=== PATIENT | male | born 1945 | race Caucasian/White ===

== ENCOUNTER → 2023-09-17 | Outpatient (CLI) | payer MEDICARE ==
[2023-09-17 14:08] LABS: African American GFR (CKD) 86 (>60 ml/min/1.73 sqM); Blood Urea Nitrogen 21 mg/dL (9-20); Non-African American GFR(CKD) 74 (>60 ml/min/1.73 sqM)
--- NOTE | 2023-09-17 15:09 | CT ---
EXAMINATION TYPE: CT soft tissue neck w con DATE OF EXAM: 09/17/2023 COMPARISON: None HISTORY: c/o sore throat CT DLP: 297.7 mGycm CONTRAST: CT scan of the neck is performed with IV Contrast, patient injected with 100 mL of Isovue 300. Contrast enhanced CT of the neck was performed from the skull base through the lung apices. AIRWAY: Large soft tissue mass at the base of the tongue on the left measuring 2.9 x 2.4 x 2.9 cm fel t to reflect malignancy until proven otherwise. Tissue diagnosis is recommended. There appears to be extension into the left tonsillar pillar. The remaining airway appears to be free of additional mass and is patent. SALIVARY GLANDS: The submandibular and parotid glands are free of mass or inflammatory process. THYROID GLAND: No nodules or masses seen. LYMPH NODES: No adenopathy seen greater than 1cm. LUNG APICES: No nodule or mass is seen. Subpleural fibrosis noted mild in degree. OTHER: Vascular structures are patent. No significant degenerative change of the cervical spine. N o abscess seen. IMPRESSION: Large soft tissue mass at the base of the tongue on the left measuring 2.9 x 2.4 x 2.9 cm felt to ref lect malignancy until proven otherwise. Tissue diagnosis is recommended. There appears to be extensio n into the left tonsillar pillar.
== END | disposition home or self-care (01) ==
LOC: RADCTMAIN 12:52
PROVIDERS: ATTEND Otolaryngology
DX: Z01.812 Encounter for preprocedural laboratory examination (principal)
CPT/HCPCS: 82565; 84520; 70491; 36415; Q9967

== ENCOUNTER 2023-10-30 11:34 | Day surgery (SDC) | payer MEDICARE ==
[~2023-10-30 11:34] MED LIST: LACTATED RINGERS 1,000 ML IV SCH; LIDOCAINE 1% (10MG/ML) FOR IV START INTRADERMA PRN
[2023-10-30 12:13] VITALS: TEMP 97.7
[2023-10-30] MEDS: IV FLUID CONTINUATION 1,000 ML IV ONE (12:17)
[2023-10-30] MEDS ORDERED: PROPOFOL 10 MG/ML 20 ML VIAL IV ONE (12:33)
[2023-10-30] MEDS ORDERED: LIDOCAINE 1% INJ 10MG/ML (20 ML MDV) ONE (12:33)
--- NOTE | 2023-10-30 12:43 | P.GSHP ---
History of Present Illness H&P Date: 10/30/23 Chief Complaint: Head neck cancer 77-year-old male here today for PEG tube placement. Patient with increasing dysphagia and pain with eating. Patient is about to start chemoradiation for head and neck cancer. Patient was seen by his radiation oncologist and advised PEG tube placement. Past Medical History Past Medical History: Cancer, GERD/Reflux, Hyperlipidemia, Osteoarthritis (OA) Additional Past Medical History / Comment(s): recent stress test, cancer back of tongue dx 2 months ago. will be starting chemo and radiation 11/03/23 History of Any Multi-Drug Resistant Organisms: None Reported Additional Past Surgical History / Comment(s): Bi pass left leg, 1993. tongue bx, hernia in neck. 2017 Past Anesthesia/Blood Transfusion Reactions: No Reported Reaction Smoking Status: Former smoker - Past Family History Brother(s) Additional Family Medical History / Comment(s): bi pass to leg. Medications and Allergies Home Medications Medication Instructions Recorded Confirmed Type Aspirin 81 mg PO DAILY 10/28/23 10/30/23 History Atorvastatin Calcium 20 mg PO HS 10/28/23 10/30/23 History HYDROcodone/APAP 10-325MG [[place] 1 tab PO BID PRN 10/28/23 10/30/23 History 10-325] Omeprazole 20 mg PO DAILY 10/28/23 10/30/23 History Allergies Allergy/AdvReac Type Severity Reaction Status Date / Time No Known Allergies Allergy Verified 10/30/23 11:51 Surgical - Exam Vital Signs Temp Pulse Resp BP Pulse Ox 97.7 F 59 L 15 171/77 99 10/30/23 11:50 10/30/23 11:50 10/30/23 11:50 10/30/23 11:50 10/30/23 11:50 Physical exam: General: Well-developed, well-nourished HEENT: Normocephalic, sclerae nonicteric Abdomen: Nontender, nondistended Extremities: No edema Neuro: Alert and oriented Assessment and Plan (1) Dysphagia Narrative/Plan: Will proceed with EGD and PEG tube placement at this time. Risks of bleeding, infection, leak, fistula, bowel injury discussed. He understands wishes to proceed. Current Visit: Yes Status: Acute Code(s): R13.10 - DYSPHAGIA, UNSPECIFIED SNOMED Code(s): 52763690
--- NOTE | 2023-10-30 12:54 | P.PCN ---
Date of Procedure: 10/30/23 Procedure(s) Performed: PREOPERATIVE DIAGNOSIS: Malnutrition POSTOPERATIVE DIAGNOSIS: Same PROCEDURE: EGD with PEG tube placement SURGEON: Sorin EBL: Minimal ANESTHESIA: Sedation COMPLICATIONS: None OPERATIVE PROCEDURE: The patient was placed in the supine position on the endoscopy table. The patient was sedated per anesthesia that time. The Olympus gastroscope was inserted into the oropharynx and passed under direct visualization to the region of the duodenum. No obstruction was seen. The pylorus was widely patent. The stomach was carefully inspected. The patient did have a small to medium size hiatal hernia. The stomach was fully insufflated with air. The abdominal wall was inspected. The light was seen shining through the abdominal wall in the left upper quadrant. This site was chosen for PEG tube placement. The area was prepped in the usual sterile fashion. This area was then localized with lidocaine. No air was evident when aspirating while advancing the localizing needle into the stomach until the stomach was reached. A small vertical incision was made using the scalpel. The Seldinger needle was advanced into the lumen of the stomach the wire was advanced. The wire was grasped with an endoscopic snare. The wire was pulled through the oropharynx. The catheter was then threaded over the guidewire and the guidewire and catheter were pulled anteriorly until the hub of the PEG tube catheter was seated against the anterior wall the stomach. The circular bolster was applied and tightened down. The endoscope was then readvanced into the stomach. There was no evidence of any bleeding and there was appropriate tightness on the bolster. The catheter was cut appropriately. The dual port feeding adapter was applied. DISPOSITION: Stable to recovery room
[2023-10-30 13:02] VITALS: RESP 18
[2023-10-30 13:16] VITALS: BP 160/82; PULSE 72
== END 2023-10-30 13:44 | disposition home or self-care (01) ==
LOC: ORWHC2ENDO 11:34
PROVIDERS: ATTEND Surgery
DX: E46 Unspecified protein-calorie malnutrition (principal); E78.5 Hyperlipidemia, unspecified; K21.9 Gastro-esophageal reflux disease without esophagitis; M19.90 Unspecified osteoarthritis, unspecified site; I73.9 Peripheral vascular disease, unspecified; Z87.891 Personal history of nicotine dependence; Z79.82 Long term (current) use of aspirin; Z79.899 Other long term (current) drug therapy
CPT/HCPCS: 43246

== ENCOUNTER 2024-01-19 12:01 | Emergency (ER) | payer MEDICARE ==
[2024-01-19 12:05] VITALS: RESP 18
[2024-01-19 12:33] VITALS: TEMP 97.4
--- NOTE | 2024-01-19 12:33 | ED ---
Headache HPI - General Chief Complaint: Headache Stated Complaint: headaches,Cancer pt Time Seen by Provider: 01/19/24 12:18 Source: patient, family, RN notes reviewed Mode of arrival: ambulatory Limitations: no limitations - History of Present Illness Initial Comments: 78-year-old male with a history of tongue cancer presents emergency department accompanied by his with chief complaint of intermittent left-sided headaches over the past week. Patient was urged by his oncologist report to the emergency department for further evaluation. Patient states that these headaches will arise every 1-3 hours in the last between 5 to 15 minutes and described as a throbbing sensation of the left side of the head and left neck. Patient states that pain is exacerbated with head movement. Denies acute neurological deficits at time of headaches. Denies history of RI, CVA, TIA. Denies chest pain, shortness of breath, difficulty breathing, abdominal pain, fevers, chills, weakness. - Related Data Home Medications Medication Instructions Recorded Confirmed Aspirin 81 mg PO DAILY 10/28/23 01/19/24 HYDROcodone/APAP 10-325MG [[place] 1 tab PO QID PRN 10/28/23 01/19/24 10-325] Omeprazole 20 mg PO DAILY 10/28/23 01/19/24 [place] [[place]] 5 mg PO TID 01/19/24 01/19/24 Allergies Allergy/AdvReac Type Severity Reaction Status Date / Time No Known Allergies Allergy Verified 01/19/24 13:11 Review of Systems ROS Statement: Those systems with pertinent positive or pertinent negative responses have been documented in the HPI. ROS Other: All systems not noted in ROS Statement are negative. Past Medical History Past Medical History: Cancer, GERD/Reflux, Hyperlipidemia, Osteoarthritis (OA) Additional Past Medical History / Comment(s): recent stress test, cancer back of tongue dx 2 months ago. will be starting chemo and radiation 11/03/23 History of Any Multi-Drug Resistant Organisms: None Reported Additional Past Surgical History / Comment(s): Bi pass left leg, 1993. tongue bx, hernia in neck. 2017 Past Anesthesia/Blood Transfusion Reactions: No Reported Reaction Past Psychological History: No Psychological Hx Reported Smoking Status: Former smoker Past Alcohol Use History: None Reported Past Drug Use History: None Reported - Past Family History Brother(s) Additional Family Medical History / Comment(s): bi pass to leg. General Exam Limitations: no limitations General appearance: alert, in no apparent distress Head exam: Present: atraumatic, normocephalic, normal inspection Eye exam: Present: normal appearance, PERRL, EOMI. Absent: scleral icterus, conjunctival injection, periorbital swelling ENT exam: Present: normal exam, mucous membranes moist Neck exam: Present: normal inspection. Absent: tenderness, meningismus, lymphadenopathy Respiratory exam: Present: normal lung sounds bilaterally. Absent: respiratory distress, wheezes, rales, rhonchi, stridor Cardiovascular Exam: Present: regular rate, normal rhythm, normal heart sounds. Absent: systolic murmur, diastolic murmur, rubs, gallop, clicks GI/Abdominal exam: Present: soft, normal bowel sounds. Absent: distended, tenderness, guarding, rebound, rigid Extremities exam: Present: normal inspection, full ROM, normal capillary refill. Absent: tenderness, pedal edema, joint swelling, calf tenderness Neurological exam: Present: alert, oriented X3, CN II-XII intact Skin exam: Present: warm, dry, intact, normal color. Absent: rash Course Vital Signs 01/19/24 01/19/24 01/19/24 12:02 12:29 15:24 Temperature 98.2 F 97.4 F L Pulse Rate 74 67 69 Respiratory 18 18 18 Rate Blood Pressure 154/77 164/83 148/71 O2 Sat by Pulse 98 97 96 Oximetry Medical Decision Making - Medical Decision Making Was pt. sent in by a medical professional or institution (, [facility], [facility], urgent care, hospital, or snf...) When possible be specific @ -No Did you speak to anyone other than the patient for history (EMS, parent, family, police, friend...)? What history was obtained from this source @ -No Did you review nursing and triage notes (agree or disagree)? Why? @ -I reviewed and agree with nursing and triage notes Were old charts reviewed (outside hosp., previous admission, EMS record, old EKG, old radiological studies, urgent care reports/EKG's, snf records)? Report findings @ -No old charts were reviewed Differential Diagnosis (chest pain, altered mental status, abdominal pain women, abdominal pain men, vaginal bleeding, weakness, fever, dyspnea, syncope, heada aubrie, dizziness, GI bleed, back pain, seizure, CVA, palpatations, mental health, musculoskeletal)? @ -Differential Headache: Migraine, tension, cluster, carbon monoxide, central venous thrombosis, pension karma temporal arteritis, acute closure glaucoma, intercranial hemorrhage, mastoiditis, sinusitis, head injury, this is not meant to be an all-inclusive list. EKG interpreted by me (3pts min.). @ -None X-rays interpreted by me (1pt min.). @ -None done CT interpreted by me (1pt min.). @ -CT of the brain and C-spine without contrast revealed mild patchy burden of chronic small vessel ischemic disease with old lacunar infarct in the left basal ganglia with no acute intracranial abnormality noted, no acute fracture or malalignment of the cervical spine. Known large ulcerated mass of the left posterior tongue. Underlying COPD U/S interpreted by me (1pt. min.). @ -None done What testing was considered but not performed or refused? (CT, X-rays, U/S, labs)? Why? @ -CT angiography of the head and neck were considered but deferred. Shared decision making with the patient and the patient's at bedside they are in agreement with completing CT of the brain and neck without contrast and will defer CTA. States that he has a PET scan scheduled in March and feels comfortable with receiving regular CT imaging at this time. What meds were considered but not given or refused? Why? @ -None Did you discuss the management of the patient with other professionals ( professionals i.e. , PA, [facility], lab, RT, psych nurse, pediatric social worker, ground mixer, teacher, medical officer, telephonic case manager)? Give summary @ -i spoke with a maintenance representative at [facility] center in regard to the patient's presentation and prognosis. Is recommended that patient receive a palliative care consult for pain medication. Consult is placed. Was smoking cessation discussed for >3mins.? @ -No Was critical care preformed (if so, how long)? @ -No Were there social determinants of health that impacted care today? How? (Homelessness, low income, unemployed, alcoholism, drug addiction, transpor tation, low edu. Level, literacy, decrease access to med. care, usp, rehab)? @ -No Was there de-escalation of care discussed even if they declined (Discuss DNR or withdrawal of care, Hospice)? DNR status @ -No What co-morbidities impacted this encounter? (DM, HTN, Smoking, COPD, CAD, Cancer, CVA, ARF, Chemo, Hep., AIDS, mental health diagnosis, sleep apnea, morbid obesity)? @ -None Was patient admitted / discharged? Hospital course, mention meds given and route, prescriptions, significant lab abnormalities, going to OR and other pertinent info. @ - Discharge. 78-year-old male with headache. On examination patient is resting comfortably no signs acute distress. Patient does have reproducible pain to palpation to the left side of the head. There are no acute neurological deficits. Patient is provided with Toradol and fluids pending results of CT imaging. Discussion with patient and patient's at bedside option between CTA and CT and they both agree with CT. On reevaluation, patient states that Toradol and fluids have not helped symptoms and is provided with dose of morphin e. CBC reveals macrocytic anemia with a hemoglobin of 10.5, hematocrit 32.1 and MCV 103.4, coagulation profile within normal limits, CMP elevated BUN 42 and hyponatremia 134. ET unremarkable for acute intracranial or cervical pathology at this time. Relayed information to patient. Additionally, maintenance representative from [facility] reported to the emergency department and was rec ommended that patient receive a consultation with palliative care for further treatment of chronic pain management. All questions answered at bedside and strict return prior discussed the patient he is verbalized understanding. Patient stable for discharge at this time. Recommend follows up with his oncologist outpatient as scheduled. Discussed with Dr. Beckford Undiagnosed new problem with uncertain prognosis? @ -No Drug Therapy requiring intensive monitonitoring for toxicity (Heparin, Nitro, Insulin, Cardizem)? @ -No Were any procedures done? @ -No Diagnosis/symptom? @ -Migraine headache, tongue cancer, history of chemotherapy and radiation Acute, or Chronic, or Acute on Chronic? @ -Acute Uncomplicated (without systemic symptoms) or Complicated (systemic symptoms)? @ -Uncomplicated Side effects of treatment? @ -No Exacerbation, Progression, or Severe Exacerbation? @ -No Poses a threat to life or bodily function? How? (Chest pain, USA, RI, pneumonia, PE, COPD, DKA, ARF, appy, cholecystitis, CVA, Diverticulitis, Homicidal, Suicidal, threat to staff... and all critical care pts) @ -No - Lab Data Result diagrams: 01/19/24 12:59 01/19/24 12:59 Lab Results 01/19/24 01/19/24 01/19/24 Range/Units 12:59 12:59 12:59 WBC 11.3 H (3.8-10.6) k/uL RBC 3.11 L (4.30-5.90) m/uL Hgb 10.5 L (13.0-17.5) gm/dL Hct 32.1 L (39.0-53.0) % MCV 103.4 H (80.0-100.0) fL MCH 33.8 (25.0-35.0) pg MCHC 32.7 (31.0-37.0) g/dL RDW 16.2 H (11.5-15.5) % Plt Count 319 (150-450) k/uL MPV 7.4 Neutrophils % 73 % Lymphocytes % 15 % Monocytes % 8 % Eosinophils % 1 % Basophils % 0 % Neutrophils # 8.2 H (1.3-7.7) k/uL Lymphocytes # 1.7 (1.0-4.8) k/uL Monocytes # 0.9 (0-1.0) k/uL Eosinophils # 0.1 (0-0.7) k/uL Basophils # 0.1 (0-0.2) k/uL Anisocytosis Slight Macrocytosis Moderate PT 10.5 (10.0-12.5) sec INR 0.9 (<1.2) APTT 24.9 (22.0-30.0) sec Sodium 134 L (137-145) mmol/L Potassium 5.1 (3.5-5.1) mmol/L Chloride 101 (98-107) mmol/L Carbon Dioxide 24 (22-30) mmol/L Anion Gap 9 mmol/L BUN 42 H (9-20) mg/dL Creatinine 0.93 (0.66-1.25) mg/dL Est GFR (CKD-EPI)AfAm >90 (>60 ml/min/1.73 sqM) Est GFR (CKD-EPI)NonAf 80 (>60 ml/min/1.73 sqM) Glucose 92 (74-99) mg/dL Calcium 9.5 (8.4-10.2) mg/dL Magnesium 2.2 (1.6-2.3) mg/dL Total Bilirubin 0.6 (0.2-1.3) mg/dL AST 35 (17-59) U/L ALT 18 (4-49) U/L Alkaline Phosphatase 85 (38-126) U/L Total Protein 7.2 (6.3-8.2) g/dL Albumin 4.0 (3.5-5.0) g/dL Disposition Clinical Impression: Migraine Disposition: HOME SELF-CARE Condition: Stable Instructions (If sedation given, give patient instructions): Migraine Headache (ED) Additional Instructions: Return to the emergency department for any new or worsening symptoms. Recommend follow-up outpatient with oncologist as scheduled. Is patient prescribed a controlled substance at d/c from ED?: No Referrals: Nohelia Ely MD [Primary Care Provider] - 1-2 days Time of Disposition: 14:30
[2024-01-19] MEDS: KETOROLAC 15 MG/ML 1 ML VIAL IVP STA (13:05)
[2024-01-19] MEDS: SODIUM CHLORIDE 0.9% 1,000 ML IV STA (13:05)
[2024-01-19 13:08] LABS: Anisocytosis Slight; Basophils # (A) 0.1 k/uL (0-0.2); Basophils % (A) 0 %; Eosinophils # (A) 0.1 k/uL (0-0.7); Eosinophils % (A) 1 %; HCT 32.1 % (39.0-53.0); HGB 10.5 gm/dL (13.0-17.5); Lymphocytes # (A) 1.7 k/uL (1.0-4.8); Lymphocytes % (A) 15 %; MCH 33.8 pg (25.0-35.0); MCHC 32.7 g/dL (31.0-37.0); MCV 103.4 fL (80.0-100.0); Macrocytosis Moderate; Mean Platelet Volume 7.4; Monocytes # (A) 0.9 k/uL (0-1.0); Monocytes % (A) 8 %; Neutrophils # (A) 8.2 k/uL (1.3-7.7); Neutrophils % (A) 73 %; Platelet Count 319 k/uL (150-450); RBC 3.11 m/uL (4.30-5.90); RDW 16.2 % (11.5-15.5); WBC 11.3 k/uL (3.8-10.6)
[2024-01-19 13:18] LABS: ALT 18 U/L (4-49); African American GFR (CKD) >90 (>60 ml/min/1.73 sqM); Anion Gap 9 mmol/L; Blood Urea Nitrogen 42 mg/dL (9-20); Calcium 9.5 mg/dL (8.4-10.2); Carbon Dioxide 24 mmol/L (22-30); Chloride 101 mmol/L (98-107); Glucose 92 mg/dL (74-99); INR 0.9 (<1.2); Non-African American GFR(CKD) 80 (>60 ml/min/1.73 sqM); Partial Thromboplastin Time 24.9 sec (22.0-30.0); Prothrombin Time 10.5 sec (10.0-12.5); Sodium 134 mmol/L (137-145); Total Bilirubin 0.6 mg/dL (0.2-1.3); Total Protein 7.2 g/dL (6.3-8.2)
[2024-01-19 13:27] LABS: AST 35 U/L (17-59); Alkaline Phosphatase 85 U/L (38-126); Magnesium 2.2 mg/dL (1.6-2.3); Potassium 5.1 mmol/L (3.5-5.1)
--- NOTE | 2024-01-19 14:11 | CT ---
EXAMINATION TYPE: CT brain keerthiine wo con DATE OF EXAM: 01/19/2024 COMPARISON: Head CT 10/09/2023 HISTORY: 78-year-old male LEFT SIDED HEADACHE X [address] DLP: 1536.8 mGycm Automated exposure control for dose reduction was used. Technique: Examination of the head was done in axial plane without intravenous contrast. Coronal and sagittal reconstructions performed. CT of the cervical spine was obtained in axial plane without intravenous injection of contrast mater ial. Coronal and sagittal reformatted images were obtained from the axial views for evaluation of f ractures, spinal alignment and canal. FINDINGS: Head: There is no evidence of acute intracranial hemorrhage, acute ischemic changes, mass, mass-effect, or extra-axial fluid collection. There is no effacement of cerebral sulci or basal subarachnoid cister ns. There is no hydrocephalus. There is no midline shift. Whaley-white matter distinction is preserv ed. Mild periventricular white matter hypodensity suggesting changes of chronic small vessel ischemic dis ease. Suspect old lacunar infarct left basal ganglia. Mild mucosal thickening throughout the ethmoid air cells. Slight leftward nasal septal deviation. [place] air cells are well pneumatized. Orbits and globes are intact. Cervical spine: There is redemonstration of a large ulcerated mass along the left posterior base of the tongue. Emphy sematous change in the visualized upper lungs. No acute fracture or malalignment of the cervical spine. No cranial cervical junction abnormality, predental space widening, or prevertebral soft tissue swell ing. Moderate degenerative disc disease C5-C7 levels and mild elsewhere in the cervical spine. Bulging disks likely contributing to variable mild spinal canal stenoses throughout. Scattered moderate facet and uncovertebral joint arthropathy throughout. Changes result in moderate right neural foraminal stenosis at C4-C5, C5-C6, C6-C7. Sagittal and coronal reformatted images confirm above findings. COMBINED IMPRESSION: 1. Mild patchy burden of chronic small vessel ischemic disease. Old lacunar infarct left basal gangli a. No acute intracranial abnormality seen. 2. No acute fracture or malalignment of the cervical spine. Moderate multilevel spondylotic change. 3. Known large ulcerated mass of the left posterior tongue. 4. Underlying COPD. [facility], , 01/19/2024 2:09 PM
[2024-01-19] MEDS: MORPHINE SULFATE 4 MG/ML SYRINGE IVP STA (14:15)
[2024-01-19 15:25] VITALS: BP 148/71; PULSE 69
== END 2024-01-19 15:26 | disposition home or self-care (01) ==
LOC: EC 12:01
CPT/HCPCS: 36415; 70450; 72125; 80053; 83735; 85025; 85610; 85730; 96361; 96374; 96375; 99284

== ENCOUNTER 2024-02-25 11:42 | Emergency (ER) | payer MEDICARE, OTHER ==
--- NOTE | 2024-02-25 12:19 | ED ---
ENT HPI - General Chief complaint: ENT Stated complaint: cancer pt, neck,throat swelling Time Seen by Provider: 02/25/24 11:50 Source: patient, family Mode of arrival: ambulatory Limitations: no limitations - History of Present Illness Initial comments: 78-year-old male with past medical history of tongue cancer who presents to the emergency department with neck swelling and inability to swallow. Patient has a history of tongue cancer. He did have radiation done by Dr. Wagoner in December. He is supposed to follow-up next month for a PET scan to determine whether the radiation was successful. He states over the past week he has had more swelling to his neck, worst today. He is having difficulty swallowing even water. He denies any fevers. He called his radiation oncologist who told him to come to the hospital. He denies any difficulty breathing. No chest pain. He [place] [facility] [place], Dr. Rodriguez. - Related Data Home Medications Medication Instructions Recorded Confirmed Aspirin 81 mg PO DAILY 10/28/23 02/25/24 HYDROcodone/APAP 10-325MG [[place] 2 tab PO QID PRN 10/28/23 02/25/24 10-325] Omeprazole 20 mg PO DAILY 10/28/23 02/25/24 Pilocarpine [Salagen] 5 mg PO TID 01/19/24 02/25/24 Atorvastatin [Lipitor] 20 mg PO HS 02/25/24 02/25/24 dexAMETHasone [Decadron Elixir] 1.5 mg PO QID PRN 02/25/24 02/25/24 Allergies Allergy/AdvReac Type Severity Reaction Status Date / Time No Known Allergies Allergy Verified 02/25/24 14:56 Review of Systems ROS Statement: Those systems with pertinent positive or pertinent negative responses have been documented in the HPI. ROS Other: All systems not noted in ROS Statement are negative. Past Medical History Past Medical History: Cancer, GERD/Reflux, Hyperlipidemia, Osteoarthritis (OA) Additional Past Medical History / Comment(s): recent stress test, cancer back of tongue dx 2 months ago. will be starting chemo and radiation 11/03/23 History of Any Multi-Drug Resistant Organisms: None Reported Additional Past Surgical History / Comment(s): Bi pass left leg, 1993. tongue bx, hernia in neck. 2017 Past Anesthesia/Blood Transfusion Reactions: No Reported Reaction Past Psychological History: No Psychological Hx Reported Smoking Status: Former smoker Past Alcohol Use History: None Reported Past Drug Use History: None Reported - Past Family History Brother(s) Additional Family Medical History / Comment(s): bi pass to leg. General Exam Limitations: no limitations General appearance: alert, in no apparent distress Head exam: Present: atraumatic, normocephalic, normal inspection Eye exam: Present: normal appearance, PERRL, EOMI. Absent: scleral icterus, conjunctival injection, periorbital swelling ENT exam: Present: mucous membranes moist Neck exam: Present: lymphadenopathy, other (Edematous soft tissue swelling in the submental/submandibular region) Respiratory exam: Present: normal lung sounds bilaterally. Absent: respiratory distress, wheezes, rales, rhonchi, stridor Cardiovascular Exam: Present: regular rate, normal rhythm, normal heart sounds. Absent: systolic murmur, diastolic murmur, rubs, gallop, clicks GI/Abdominal exam: Present: soft, normal bowel sounds. Absent: distended, tenderness, guarding, rebound, rigid Extremities exam: Present: normal inspection, full ROM, normal capillary refill. Absent: tenderness, pedal edema, joint swelling, calf tenderness Neurological exam: Present: alert, oriented X3, CN II-XII intact Psychiatric exam: Present: normal affect, normal mood Course Vital Signs 02/25/24 02/25/24 11:46 13:05 Temperature 98.4 F Pulse Rate 76 71 Respiratory 18 16 Rate Blood Pressure 122/67 120/54 O2 Sat by Pulse 97 98 Oximetry Medical Decision Making - Medical Decision Making Was pt. sent in by a medical professional or institution (, PA, LABELLING MACHINE OPERATOR, urgent care, hospital, or detention...) When possible be specific @ -Patient was sent in by Dr. Wagoner Did you speak to anyone other than the patient for history (EMS, parent, family, police, friend...)? What history was obtained from this source @ -Spoke with Dr. Wagoner for history Did you review nursing and triage notes (agree or disagree)? Why? @ -I reviewed and agree with nursing and triage notes Were old charts reviewed (outside hosp., previous admission, EMS record, old EKG, old radiological studies, urgent care reports/EKG's, detention records)? Report findings @ -I reviewed a CT scan that was performed on the patient in January which demonstrated the tongue mass Differential Diagnosis (chest pain, altered mental status, abdominal pain women, abdominal pain men, vaginal bleeding, weakness, fever, dyspnea, syncope, headache, dizziness, GI bleed, back pain, seizure, CVA, palpatations, mental health, musculoskeletal)? @ -Enlarging tongue mass, angioedema, epiglottitis, metastatic cancer EKG interpreted by me (3pts min.). @ -Yes and demonstrates sinus rhythm with a rate of 72. NH interval 152. QRS 76. QTc of 364. No acute ST segment elevations or depressions X-rays interpreted by me (1pt min.). @ -None done CT interpreted by me (1pt min.). @ -Yes and demonstrates posterior tongue mass U/S interpreted by me (1pt. min.). @ -None done What testing was considered but not performed or refused? (CT, X-rays, U/S, labs)? Why? @ -None What meds were considered but not given or refused? Why? @ -None Did you discuss the management of the patient with other professionals (professionals i.e. , PA, LABELLING MACHINE OPERATOR, lab, RT, psych nurse, group social worker, licensed marriage and family therapist, teacher, seaman officer, case packer and sealer)? Give summary @ -Spoke with Dr. Wagoner who recommends transfer to a facility with OMFS capabilities so that the patient can have direct scope again Was smoking cessation discussed for >3mins.? @ -No Was critical care preformed (if so, how long)? @ -Yes, 35 minutes for multiple consultations. Management of transfer to facility with patients OMFS surgeon Were there social determinants of health that impacted care today? How? ( Homelessness, low income, unemployed, alcoholism, drug addiction, transportation, low edu. Level, literacy, decrease access to med. care, retirement, rehab)? @ -No Was there de-escalation of care discussed even if they declined (Discuss DNR or withdrawal of care, Hospice)? DNR status @ -No What co-morbidities impacted this encounter? (DM, HTN, Smoking, COPD, CAD, Cancer, CVA, ARF, Chemo, Hep., AIDS, mental health diagnosis, sleep apnea, morbid obesity)? @ -Tongue cancer Was patient admitted / discharged? Hospital course, mention meds given and route, prescriptions, significant lab abnormalities, going to OR and other pertinent info. @ -Upon arrival patient seen and evaluated in bed 6. Thorough history and physical exam was performed. Patient does have some hoarseness to his voice and some anterior neck swelling. IV is established. He was given 10 mg of Decadron. Laboratory studies are conducted and patient goes for CT. I did discuss the CT results with the radiologist on-call. I then spoke with Dr. Wagoner. He does not feel that the patient should stay at our facility due to level of care. Patient needs evaluation by his [facility] [place]. We did reach out to [facility]. Spoke with the fellow on-call for Dr. Banuelos. Agreeable to accept transfer of the patient. Patient will go to the [facility]. He does sign COBRA forms. Unasyn was added under the direction of the accepting ER physician Dr. Choudhary. Patient will go ER to ER. He is transferred in stable condition Undiagnosed new problem with uncertain prognosis? @ -No Drug Therapy requiring intensive monitoring for toxicity (Heparin, Nitro, Insulin, Cardizem)? @ -No Were any procedures done? @ -No Diagnosis/symptom? @ -Acute dysphagia, tongue cancer Acute, or Chronic, or Acute on Chronic? @ -Acute Uncomplicated (without systemic symptoms) or Complicated (systemic symptoms)? @ -Complicated Side effects of treatment? @ -No Exacerbation, Progression, or Severe Exacerbation? @ -No Poses a threat to life or bodily function? How? (Chest pain, [place], [place], pneumonia, PE, COPD, DKA, ARF, appy, cholecystitis, CVA, Diverticulitis, Homicidal, Suicidal, threat to staff... and all critical care pts) @ -No - Lab Data Result diagrams: 02/25/24 12:47 02/25/24 12:47 Lab Results 02/25/24 02/25/24 02/25/24 Range/Units 12:47 12:47 12:47 WBC 10.8 H (3.8-10.6) k/uL RBC 3.06 L (4.30-5.90) m/uL Hgb 10.6 L (13.0-17.5) gm/dL Hct 32.4 L (39.0-53.0) % MCV 105.9 H (80.0-100.0) fL MCH 34.8 (25.0-35.0) pg MCHC 32.9 (31.0-37.0) g/dL RDW 14.5 (11.5-15.5) % Plt Count 214 (150-450) k/uL MPV 7.5 Neutrophils % 78 % Lymphocytes % 15 % Monocytes % 4 % Eosinophils % 2 % Basophils % 0 % Neutrophils # 8.5 H (1.3-7.7) k/uL Lymphocytes # 1.7 (1.0-4.8) k/uL Monocytes # 0.4 (0-1.0) k/uL Eosinophils # 0.2 (0-0.7) k/uL Basophils # 0.0 (0-0.2) k/uL Macrocytosis Moderate Sodium 135 L (137-145) mmol/L Potassium 4.8 (3.5-5.1) mmol/L Chloride 102 (98-107) mmol/L Carbon Dioxide 26 (22-30) mmol/L Anion Gap 7 mmol/L BUN 61 H (9-20) mg/dL Creatinine 1.04 (0.66-1.25) mg/dL Est GFR (CKD-EPI)AfAm 81 (>60 ml/min/1.73 sqM) Est GFR (CKD-EPI)NonAf 70 (>60 ml/min/1.73 sqM) Glucose 96 (74-99) mg/dL Plasma Lactic Acid Garry 1.4 (0.7-2.0) mmol/L Calcium 8.8 (8.4-10.2) mg/dL Total Bilirubin 0.5 (0.2-1.3) mg/dL AST 29 (17-59) U/L ALT 21 (4-49) U/L Alkaline Phosphatase 59 (38-126) U/L Total Protein 6.2 L (6.3-8.2) g/dL Albumin 3.4 L (3.5-5.0) g/dL Disposition Clinical Impression: Dysphagia, Tongue cancer Disposition: OTHER INSTITUTION NOT DEFINED Condition: Serious Is patient prescribed a controlled substance at d/c from ED?: No Referrals: Nohelia Ely MD [Primary Care Provider] - 1-2 days Time of Disposition: 17:21 - Out of Hospital Transfer - Req. Specs Out of Hospital Transfer - Requested Specifics: Other Emergency Center ([place] ([place] - [facility] [place])
[2024-02-25] MEDS: DEXAMETHASONE SOD PHOSPHATE 10 MG/ML 1 ML VIAL IVP STA (12:52)
[2024-02-25 13:03] LABS: Basophils % (A) 0 %; Eosinophils # (A) 0.2 k/uL (0-0.7); Eosinophils % (A) 2 %; HCT 32.4 % (39.0-53.0); HGB 10.6 gm/dL (13.0-17.5); Lymphocytes # (A) 1.7 k/uL (1.0-4.8); Lymphocytes % (A) 15 %; MCH 34.8 pg (25.0-35.0); MCHC 32.9 g/dL (31.0-37.0); MCV 105.9 fL (80.0-100.0); Macrocytosis Moderate; Mean Platelet Volume 7.5; Monocytes # (A) 0.4 k/uL (0-1.0); Monocytes % (A) 4 %; Neutrophils # (A) 8.5 k/uL (1.3-7.7); Neutrophils % (A) 78 %; Platelet Count 214 k/uL (150-450); RBC 3.06 m/uL (4.30-5.90); RDW 14.5 % (11.5-15.5); WBC 10.8 k/uL (3.8-10.6)
[2024-02-25 13:13] VITALS: RESP 16
[2024-02-25 13:19] LABS: ALT 21 U/L (4-49); African American GFR (CKD) 81 (>60 ml/min/1.73 sqM); Albumin 3.4 g/dL (3.5-5.0); Anion Gap 7 mmol/L; Blood Urea Nitrogen 61 mg/dL (9-20); Calcium 8.8 mg/dL (8.4-10.2); Carbon Dioxide 26 mmol/L (22-30); Chloride 102 mmol/L (98-107); Glucose 96 mg/dL (74-99); Non-African American GFR(CKD) 70 (>60 ml/min/1.73 sqM); Sodium 135 mmol/L (137-145); Total Bilirubin 0.5 mg/dL (0.2-1.3); Total Protein 6.2 g/dL (6.3-8.2)
[2024-02-25 13:23] LABS: AST 29 U/L (17-59); Potassium 4.8 mmol/L (3.5-5.1)
[2024-02-25 13:24] LABS: Alkaline Phosphatase 59 U/L (38-126)
--- NOTE | 2024-02-25 13:51 | CT ---
EXAMINATION TYPE: CT soft tissue neck w con CT DLP: 235.5 mGycm, Automated exposure control for dose reduction was used. DATE OF EXAM: 02/25/2024 1:39 PM COMPARISON: CT brain C-spine 01/19/2024, CT soft tissue neck 09/17/2023, PET/CT 10/09/2023. CLINICAL INDICATION:Male, 78 years old with history of neck swelling, hx cancer; PHH, LEFT JAW PAIN TECHNIQUE: Standard enhanced CT of the neck following intravenous administration of 100 cc of Isovue 300. Axial sections with coronal and sagittal reformats were obtained. FINDINGS: Brain: Visualized portions are grossly unremarkable. Orbits: Unremarkable Sinuses: Grossly unremarkable. Suprahyoid Neck: Redemonstration of large ulcerated mass along the left posterior base of the tongue. The oropharynx, oral cavity, parapharyngeal and retropharyngeal spaces are clear and symmetric. The nasopharynx is unremarkable. Infrahyoid Neck: The larynx, hypopharynx, and supraglottic area are clear and symmetric. Parotid Glands: Unremarkable. Submandibular Glands: Unremarkable. Musculoskeletal: No acute osseous pathology. No aggressive osseous lesion. Lymph nodes: Prominent left jugular lymph node which is FDG avid redemonstrated measuring up to 9 mm level 2A. Vascular structures: Visualized major arteries are patent without evidence of aneurysm. Thoracic Inlet/airway: Airway is patent. Anterior subpleural fibrosis redemonstrated within the bilat eral upper lobes. Soft tissues/Thyroid: Thyroid appears similar stranding changes along the anterior upper neck soft ti ssues. Other: none. IMPRESSION 1. Redemonstration of known large ulcerative mass within the left posterior tongue. No significant pr ogression from prior exam. 2. Stable mildly prominent left jugular lymph node which was FDG avid on prior PET/CT. No new enlarge d lymphadenopathy greater than 1 cm short axis. [facility], , 02/25/2024 1:48 PM
[2024-02-25] MEDS: MORPHINE SULFATE 4 MG/ML SYRINGE IVP STA (16:39)
[2024-02-25] MEDS: ACETAMINOPHEN TAB 500 MG TAB PO STA (16:40)
[2024-02-25] MEDS: AMPICILLIN-SULBACTAM 3 GM in SODIUM CHLORIDE 0.9% 100 ML IVPB STA (17:30)
[2024-02-25 20:01] VITALS: BP 110/65; PULSE 71; TEMP 98.5
== END 2024-02-25 20:01 | disposition other institution (70) ==
LOC: EC 11:42
CPT/HCPCS: 36415; 70491; 80053; 83605; 85025; 93005; 96365; 96375; 99291

== ENCOUNTER → 2024-03-25 | Outpatient (CLI) | payer MEDICARE, OTHER ==
--- NOTE | 2024-03-26 15:50 | PE ---
EXAMINATION TYPE: PET CT fusion skull to thigh DATE OF EXAM: 03/25/2024 CLINICAL INDICATION:Male, 78 years old with history of C02.8 Tongue Cancer; TECHNIQUE: Following the intravenous administration of 11.59 mCi of F-18 FDG, whole body images are performed from the skull base to the midthigh. Images are reviewed on the computer in the coronal, axial, and sagittal planes. Reconstructed rotating images are created on independent workstation and reviewed on the computer. A non-contrast CT is performed in conjunction with the PET scan. Glucose level 125 mg/dL CT DLP: December 62.95 mGycm, Automated exposure control for dose reduction was used. COMPARISON: CT 02/25/2024, 01/19/2024, 09/17/2023, PET/CT 10/09/2023, MRI: None FINDINGS: Mediastinal SUV mean is 2.5. Hepatic parenchyma SUV mean is 3.2. SKULL BASE AND NECK: Redemonstration of large ulcerated mass involving the left tongue base and left peritonsillar region. This demonstrates peripheral radiotracer activity. There is additional extension of radiotracer acti vity within the left anterior and posterior digastric muscular regions which is new from prior PET/CT . This demonstrates a maximum SUV of 10.0, reported previous max SUV of 23.1. There is extension into the vallecular space. Additional peripheral regions uptake identified within the anterior tongue with a max SUV of 6.6. Previously seen left cervical level 2A metabolic lymph node is not definitively visualized and stable exam. CHEST, MEDIASTINUM, AND HILAR REGION: No suspicious radiotracer activity. Cc mediastinal lymph nodes have decreased in size and are now subcentimeter with no radiotracer activ ity above background. ABDOMEN AND PELVIS: No suspicious radiotracer activity. MUSCULOSKELETAL STRUCTURES: No suspicious radiotracer activity. OTHER CT: Mild atherosclerotic calcification of the aorta and its branches. Right hilar calcified lym ph nodes. Small coronary artery calcifications. Mild cardiomegaly. Patchy bibasilar subsegmental atel ectasis. Mild paraseptal emphysematous changes. Calcified granuloma within the right posterior upper lung. Multiple calcified granulomas within the spleen. Nonobstructive right renal 1 cm calculus. Bila teral renal cysts with some cortical calcifications within both kidneys. PEG tube identified in appro priate position. Elevation the right hemidiaphragm. Distal colonic diverticulosis without evidence fo r acute diverticulitis. Postsurgical changes within the left groin with vascular stent involving the superficial femoral artery. IMPRESSION: 1. Redemonstration of large ulcerated tongue base/left peritonsillar mass with extension into the le ft anterior and posterior digastric muscular regions related to known tongue cancer. This is somewhat similar in appearance from prior CT neck 02/25/2024 but has progressed from prior PET CT 10/09/2023. 2. Additional regions of radiotracer uptake identified within the peripheral aspect of the anterior tongue which may be secondary sites of disease versus periodontal disease. Correlate with direct visu alization. 3. No other sites of suspicious radiotracer uptake. [facility], , 03/26/2024 3:48 PM
== END | disposition home or self-care (01) ==
LOC: RADPETMAIN 10:53
PROVIDERS: ATTEND Internal Medicine Hematology & Oncology
DX: C02.8 Malignant neoplasm of overlapping sites of tongue (principal); R22.32 Localized swelling, mass and lump, left upper limb; K57.30 Diverticulosis of large intestine without perforation or abscess without bleeding; N20.0 Calculus of kidney; N28.1 Cyst of kidney, acquired; I70.0 Atherosclerosis of aorta; I51.7 Cardiomegaly; J98.11 Atelectasis
CPT/HCPCS: 78815; A9552

== ENCOUNTER → 2024-07-01 | Outpatient (CLI) | payer MEDICARE, OTHER ==
--- NOTE | 2024-07-04 08:03 | PE ---
EXAMINATION TYPE: PET CT fusion skull to thigh DATE OF EXAM: 07/01/2024 CLINICAL INDICATION:Male, 78 years old with history of C01 C77.0 MALIGNANT NEOPL BASE OF TONGUE AND H EAD FACE AND N; TECHNIQUE: Following the intravenous administration of 11.05 mCi of F-18 FDG, whole body images are performed from the skull vertex to the midthigh. Images are reviewed on the computer in the coronal , axial, and sagittal planes. Reconstructed rotating images are created on independent workstation a nd reviewed on the computer. A non-contrast CT is performed in conjunction with the PET scan. Gluco se level 80 mg/dL CT DLP: 327.57 mGycm, Automated exposure control for dose reduction was used. COMPARISON: CT 02/25/2024, 01/19/2024, 09/17/2023, PET/CT 03/25/2024, MRI: None FINDINGS: Mediastinal SUV mean is 2.5. Hepatic parenchyma SUV mean is 2.7. SKULL BASE AND NECK: Redemonstration of large ulcerated mass involving the left tongue base and left peritonsillar region. This demonstrates continued radiotracer activity along its anterior inferior aspect at the level of the hyoid bone with a maximum SUV of 13.4. Previously measured 9.9. Improvement in previously demonst rated radiotracer activity within the left anterior and posterior digastric muscular regions. There is additional focal radiotracer uptake within the left peritonsillar/submandibular region with a maxi mum SUV of 7.1. Previously 10.0. CHEST, MEDIASTINUM, AND HILAR REGION: Increased size of right paratracheal lymph node measuring 6 mm short axis with maximum SUV of 4.0. Development of a right midlung 5 mm pulmonary nodule with a maximum SUV of 3.4. ABDOMEN AND PELVIS: No suspicious radiotracer activity. MUSCULOSKELETAL STRUCTURES: Developmental of sclerotic lesion within the sternal body with a max SUV of 3.8. OTHER CT: Mild atherosclerotic calcification of the aorta and its branches. Right hilar calcified lym ph nodes. Small coronary artery calcifications. Mild cardiomegaly. Patchy bibasilar subsegmental atel ectasis. Mild paraseptal emphysematous changes. Interstitial lung disease with bibasilar honeycombing changes Calcified granuloma within the right posterior upper lung. Multiple calcified granulomas wit hin the spleen. Nonobstructive bilateral renal calculi. Bilateral renal cysts with some cortical calc ifications within both kidneys. Interval removal of PEG tube. Elevation of the right hemidiaphragm. D istal colonic diverticulosis without evidence for acute diverticulitis. Postsurgical changes within t he left groin with vascular stent involving the superficial femoral artery. IMPRESSION: 1. Redemonstration of large ulcerated tongue base/left peritonsillar mass with extension into the le ft submandibular space. There are continued regions of FDG activity along the anterior inferior aspec t of the mass and within the left submandibular space. Other regions have demonstrated decreased FDG activity from prior PET/CT. 2. New sclerotic mildly FDG avid lesion within the body of the sternum consistent with metastatic di sease. 3. Enlarging right paratracheal FDG avid lymph node suggests metastasis. 4. Development of a FDG avid right midlung pulmonary nodule concerning for metastasis. [facility], , 07/04/2024 8:01 AM
== END | disposition home or self-care (01) ==
LOC: RADPETMAIN 10:45
PROVIDERS: ATTEND Radiology Radiation Oncology
DX: C01 Malignant neoplasm of base of tongue (principal); C77.0 Secondary and unspecified malignant neoplasm of lymph nodes of head, face and neck; R91.8 Other nonspecific abnormal finding of lung field
CPT/HCPCS: 78815; A9552

== ENCOUNTER → 2024-09-20 | Outpatient (CLI) | payer MEDICARE ==
--- NOTE | 2024-09-20 14:24 | FL ---
Exam Date: 09/20/2024 12:14 PM. Modified barium swallow for dysphagia. Consistencies administered: Various consistency of barium. No images were sent to PACS. Please see speech pathology report. DAP: Not Reported mGym2 Gycm2 [facility], , 09/20/2024 2:22 PM
== END | disposition home or self-care (01) ==
LOC: RADFLMAIN 11:47
PROVIDERS: ATTEND Radiology Radiation Oncology
DX: C01 Malignant neoplasm of base of tongue (principal); C77.0 Secondary and unspecified malignant neoplasm of lymph nodes of head, face and neck; Z87.891 Personal history of nicotine dependence
CPT/HCPCS: 74230

== ENCOUNTER → 2024-10-15 | Outpatient (CLI) | payer MEDICARE ==
--- NOTE | 2024-10-17 15:37 | PE ---
EXAMINATION TYPE: PET CT fusion skull to thigh DATE OF EXAM: 10/15/2024 COMPARISON: No recent pertinent CT Prior PET/CT: 07/01/2024 CLINICAL INDICATION: Male, 78 years old with history of C01 MALIGNANT NEOPLASM OF BASE OF TONGUE, TECHNIQUE: Following the intravenous administration of 10.5 to mCi of F-18 FDG, whole body images ar e performed PET CT fusion skull to thigh. Images are reviewed on the computer in the coronal, axial, and sagittal planes. Reconstructed rotating images are created on independent workstation and revie wed on the computer. A localization and attenuation correction CT is performed in conjunction with the PET scan. DLP: 471 mGycm SCAN: Subsequent Blood glucose: 111 mg/dL Average Mediastinum SUV: 2.53 Average Liver SUV: 2.78 FINDINGS: HEAD AND NECK: There is irregularity along the posterior right hypopharynx. There is increased uptake within the right neck region, example head and neck image 60, SUV 7.15. NECK: Increased uptake remains within the inferior right tongue region, image 65, SUV 7.07. No additional suspicious uptake evident. THORAX: There is a small focus of radiotracer in the superior mediastinum, image 95, SUV 5.16. This m ay be a small metastatic lymph node. There are additional pretracheal small lymph node image 100 has an SUV of 4.42. Small peribronchial lymph nodes, image 106 has SUV on the left of 3.13 and on the rig ht 3.14. ABDOMEN: No abnormal uptake PELVIS: No abnormal uptake OSSEOUS STRUCTURES: No abnormal uptake LOCALIZATION CT: Calcified right hilar adenopathy is present. COMPARISON: Radiotracer within the tongue has diminished over the interval. Superior mediastinal mat opathy has diminished. Previous right lung uptake has resolved. IMPRESSION: 1. Persistent uptake right portion of the tongue compatible with residual tumor. The uptake on the le ft submandibular region on left. Tonsillar region is not evident on the current exam. 2. Resolution of previous uptake within the lung xavier. 3. Persistent uptake within small mediastinal lymph nodes. [facility], , 10/17/2024 3:34 PM
== END | disposition home or self-care (01) ==
LOC: RADPETMAIN 14:56
PROVIDERS: ATTEND Radiology Radiation Oncology
DX: C01 Malignant neoplasm of base of tongue (principal)
CPT/HCPCS: 78815; A9552

== ENCOUNTER 2024-11-11 13:23 | Day surgery (SDC) | payer MEDICARE ==
[2024-11-10 13:32] VITALS: BMI 18.0
[~2024-11-11 13:23] MED LIST changes: -LACTATED RINGERS 1,000 ML IV SCH
[2024-11-11] MEDS: IV FLUID CONTINUATION 1,000 ML IV ONE (13:49)
[2024-11-11 13:54] VITALS: TEMP 97.5
[2024-11-11] MEDS: LACTATED RINGERS 1,000 ML IV SCH (13:56)
[2024-11-11] MEDS ORDERED: LIDOCAINE 1% INJ 10MG/ML (20 ML MDV) ONE (14:29)
[2024-11-11] MEDS ORDERED: PROPOFOL 10 MG/ML 20 ML VIAL IV ONE (14:29)
--- NOTE | 2024-11-11 14:36 | P.GSHP ---
History of Present Illness H&P Date: 11/11/24 Chief Complaint: Malnutrition, tongue cancer 79-year-old male known to our service. Patient had a PEG tube for about 6 months last year. It was removed in May. Patient has had persistent weight loss despite eating well. Here for PEG tube placement. No definite recurrence of his tongue cancer has been noted yet. Past Medical History Past Medical History: Cancer, GERD/Reflux, Osteoarthritis (OA) Additional Past Medical History / Comment(s): cancer base of tongue-last chemo and radiation started 11/03/23 History of Any Multi-Drug Resistant Organisms: None Reported Additional Past Surgical History / Comment(s): Bypass left leg, tongue bx, hernia surgery in neck, PEG tube placed and removed Past Anesthesia/Blood Transfusion Reactions: No Reported Reaction Past Psychological History: No Psychological Hx Reported Smoking Status: Former smoker Past Alcohol Use History: None Reported Additional Past Alcohol Use History / Comment(s): quit smoking 20 yrs ago. 1ppd Past Drug Use History: None Reported - Past Family History Brother(s) Additional Family Medical History / Comment(s): bypass to leg Medications and Allergies Home Medications Medication Instructions Recorded Confirmed Type Aspirin 81 mg PO DAILY 10/28/23 11/11/24 History HYDROcodone/APAP 10-325MG [[place] 2 tab PO QID PRN 10/28/23 11/11/24 History 10-325] Omeprazole 20 mg PO DAILY 10/28/23 11/11/24 History Allergies Allergy/AdvReac Type Severity Reaction Status Date / Time No Known Allergies Allergy Verified 11/11/24 13:54 Surgical - Exam Vital Signs Temp Pulse Resp BP Pulse Ox 97.5 F L 65 14 148/86 95 11/11/24 13:51 11/11/24 13:51 11/11/24 13:51 11/11/24 13:51 11/11/24 13:51 Physical exam: General: Well-developed, poorly nourished male HEENT: Normocephalic, sclerae nonicteric Abdomen: Nontender, nondistended Extremities: No edema Neuro: Alert and oriented Assessment and Plan (1) Malnutrition of moderate degree Narrative/Plan: Will proceed with EGD and PEG tube placement. Current Visit: Yes Status: Acute Code(s): E44.0 - MODERATE PROTEIN-CALORIE MALNUTRITION SNOMED Code(s): 549701053
--- NOTE | 2024-11-11 14:48 | P.PCN ---
Date of Procedure: 11/11/24 Procedure(s) Performed: PREOPERATIVE DIAGNOSIS: Malnutrition, history of tongue cancer POSTOPERATIVE DIAGNOSIS: Same PROCEDURE: EGD with PEG tube placement SURGEON: Sorin EBL: Minimal ANESTHESIA: Sedation COMPLICATIONS: None OPERATIVE PROCEDURE: The patient was placed in the supine position on the endoscopy table. The patient was sedated per anesthesia that time. The Olympus gastroscope was inserted into the oropharynx and passed under direct visualization to the region of the duodenum. No obstruction was seen. The pylorus was widely patent. The stomach was carefully inspected. The stomach was fully insufflated with air. The abdominal wall was inspected. The light was seen shining through the abdominal wall in the left upper quadrant. This was at the previous insertion site. This site was again chosen for PEG tube placement. The area was prepped in the usual sterile fashion. This area was then localized with lidocaine. No air was evident when aspirating while advancing the localizing needle into the stomach until the stomach was reached. A small vertical incision was made using the scalpel. The Seldinger needle was advanced into the lumen of the stomach the wire was advanced. The wire was grasped with an endoscopic snare. The wire was pulled through the oropharynx. The catheter was then threaded over the guidewire and the guidewire and catheter were pulled anteriorly until the hub of the PEG tube catheter was seated against the anterior wall the stomach. The circular bolster was applied and tightened down. The endoscope was then readvanced into the stomach. There was no evidence of any bleeding and there was appropriate tightness on the bolster. The catheter was cut appropriately. The dual port feeding adapter was applied. DISPOSITION: Stable to recovery room
[2024-11-11 15:19] VITALS: BP 149/83; PULSE 66; RESP 14
== END 2024-11-11 15:33 | disposition home or self-care (01) ==
LOC: ORWHC2ENDO 13:23
PROVIDERS: ATTEND Surgery
DX: E44.0 Moderate protein-calorie malnutrition (principal); Z68.1 Body mass index [BMI] 19.9 or less, adult; C01 Malignant neoplasm of base of tongue; C77.0 Secondary and unspecified malignant neoplasm of lymph nodes of head, face and neck; I10 Essential (primary) hypertension; E78.5 Hyperlipidemia, unspecified; I73.9 Peripheral vascular disease, unspecified; K21.9 Gastro-esophageal reflux disease without esophagitis; Z79.82 Long term (current) use of aspirin; Z79.899 Other long term (current) drug therapy; Z87.891 Personal history of nicotine dependence; Z92.21 Personal history of antineoplastic chemotherapy; Z92.3 Personal history of irradiation; Z95.820 Peripheral vascular angioplasty status with implants and grafts
CPT/HCPCS: 43246; J2003; J2704; B4087